=== PATIENT | male | born 1970 | race Caucasian/White ===

== ENCOUNTER 2017-01-03 22:44 | Emergency (ER) | payer MEDICAID, OTHER ==
[~2017-01-03] VITALS: Ht 177.8 cm; Wt 77.5 kg
[2017-01-03 22:51] VITALS: Ht 177.8 cm; Wt 77.5 kg
[2017-01-03] MEDS ORDERED: ONDANSETRON 4 MG INJ IV STA (23:41)
[2017-01-03] MEDS ORDERED: SOD CHLORIDE 0.9% 1,000 ML IV STA (23:41)
[2017-01-04] MEDS ORDERED: SOD CHLORIDE 0.9% 1,000 ML IV ONE
--- NOTE | 2017-01-04 00:29 | ERD ---
ER Documentation Chief Complaint Date/Time DATE: 01/04/17 TIME: 00:28 Chief Complaint hyperglycemia nw/ symptoms. dizziness [id number] [id number] HPI This is 46-year-old male comes emergency room with high sugars at home as well as urinary frequency and feeling lightheaded. He has had no nausea vomiting no fevers or chills. He is taking his metformin and glipizide 5 mg normally. Has no chest pain or shortness of breath per ROS All systems reviewed and are negative except as per history of present illness. Medications Home Meds Active Scripts Ondansetron Hcl* (Zofran*) 4 Mg Tablet, 4 MG PO Q6H for NAUSEA AND/OR VOMITING, #30 TAB Prov:TAMMY SHARMA DO 01/04/17 Reported Medications Ibuprofen* (Ibuprofen*) 100 Mg Tab.chew, 200 MG PO Q6, TAB.CHEW 01/04/17 Ascorbic Acid* (Ascorbic Acid*) 500 Mg/5 Ml Syrup, 500 MG PO DAILY, #150 ML 01/04/17 Sitagliptin* (Januvia*) 100 Mg Tablet, 100 MG PO DAILY, #30 TAB 01/04/17 Atorvastatin* (Atorvastatin*) 40 Mg Tablet, 40 MG PO QHS, #30 TAB 01/04/17 Glipizide* (Glipizide*) 5 Mg Tablet, 5 MG PO BID, TAB 01/04/17 Metformin* (Glucophage*) 1,000 Mg Tablet, 1000 MG PO BID, #60 TAB 01/04/17 Gabapentin* (Gabapentin*) 300 Mg Capsule, 300 MG PO BID, #60 CAP 01/04/17 Allergies Allergies: Coded Allergies: No Known Allergy (Unverified , 01/03/17) PMhx/Soc History of Surgery: No Anesthesia Reaction: No Hx Neurological Disorder: No Hx Respiratory Disorders: No Hx Cardiac Disorders: No Hx Psychiatric Problems: No Hx Miscellaneous Medical Probl: No Hx Substance Use: No Hx Tobacco Use: Yes Physical Exam Vitals Vital Signs Date Time Temp Pulse Resp B/P Pulse Ox O2 Delivery O2 Flow Rate FiO2 01/04/17 01:42 98.0 77 18 114/69 97 Room Air 01/03/17 22:51 98.3 91 20 144/101 100 Physical Exam Const: [] Mild distress, appears slightly uncomfortable Head: Atraumatic Eyes: Normal Conjunctiva ENT: Normal External Ears, Nose and Mouth. Neck: Full range of motion..~ No meningismus. Resp: Clear to auscultation bilaterally Cardio: Regular rate and rhythm, no murmurs Abd: Soft, non tender, non distended. Normal bowel sounds Skin: No petechiae or rashes Back: No midline or flank tenderness Ext: No cyanosis, or edema Neur: Awake and alert and oriented 3, no focal deficits Psych: Normal Mood and Affect Result Diagram: 01/04/17 0020 01/04/17 0020 Results 24 hrs Laboratory Tests Test 01/03/17 22:49 01/04/17 00:20 01/04/17 01:51 01/04/17 03:28 Bedside Glucose 248mg/dL 187mg/dL 186mg/dL White Blood Count 7.110^3/ul Red Blood Count 4.5110^6/ul Hemoglobin 14.5g/dl Hematocrit 41.5% Mean Corpuscular Volume 92.0fl Mean Corpuscular Hemoglobin 32.2pg Mean Corpuscular Hemoglobin Concent 34.9g/dl Red Cell Distribution Width 11.3% Platelet Count 93095^3/UL Mean Platelet Volume 10.1fl Neutrophils % 64.6% Lymphocytes % 21.5% Monocytes % 5.6% Eosinophils % 7.3% Basophils % 0.7% Nucleated Red Blood Cells % 0.0/100WBC Neutrophils # 4.610^3/ul Lymphocytes # 1.510^3/ul Monocytes # 0.410^3/ul Eosinophils # 0.510^3/ul Basophils # 0.110^3/ul Nucleated Red Blood Cells # 0.010^3/ul Urine Color YELLOW Urine Clarity CLEAR Urine pH 7.0 Urine Specific Dixon 1.032 Urine Ketones TRACEmg/dL Urine Nitrite NEGATIVEmg/dL Urine Bilirubin NEGATIVEmg/dL Urine Urobilinogen NEGATIVEmg/dL Urine Leukocyte Esterase NEGATIVELeu/ul Urine Microscopic RBC 0/HPF Urine Microscopic WBC 1/HPF Urine Hemoglobin NEGATIVEmg/dL Urine Glucose 3+mg/dL Urine Total Protein NEGATIVEmg/dl Sodium Level 138mmol/L Potassium Level 4.3mmol/L Chloride Level 100mmol/L Carbon Dioxide Level 25mmol/L Anion Gap 17 Blood Urea Nitrogen 11mg/dl Creatinine 0.56mg/dl Glucose Level 236mg/dl Lactic Acid Level 2.6mmol/L Calcium Level 9.6mg/dl Total Bilirubin 0.8mg/dl Direct Bilirubin 0.00mg/dl Indirect Bilirubin 0.8mg/dl Aspartate Amino Transf (AST/SGOT) 29IU/L Alanine Aminotransferase (ALT/SGPT) 33IU/L Alkaline Phosphatase 85IU/L Total Protein 7.8g/dl Albumin 5.0g/dl Globulin 2.80g/dl Albumin/Globulin Ratio 1.78 Lipase 97U/L Current Medications Medications (Trade) Dose Ordered Sig/Ok Route PRN Reason Start Time Stop Time Status Last Admin Dose Admin Sodium Chloride (NS) 1,000 ml @ 1,000 mls/hr Q1H STAT IV 01/03/17 23:41 01/04/17 00:40 DC 01/04/17 00:26 Ondansetron HCl 4 mg 4 mg ONCE STAT IV 01/03/17 23:41 01/03/17 23:43 DC 01/04/17 00:26 Sodium Chloride (NS) 1,000 ml @ 1,000 mls/hr Q1H ONCE IV 01/04/17 00:00 01/04/17 00:59 DC 01/04/17 00:27 Metoclopramide HCl (Reglan) 10 mg ONCE ONCE IV 01/04/17 03:30 01/04/17 03:31 DC 01/04/17 03:22 Procedures/MDM Hyperglycemia with dehydration likely secondary to urinary frequency. No signs of cardiac ischemia on EKG. Mild lactic acidosis secondary to dehydration. No signs of infectious process such as urinary tract infection. Patient was hydrated a liter of normal saline begin to feel better. Spoke to him and the importance of hydration and drinking adequate water. I am going to discharge him his Zofran is in case he develops nauseous that he can hydrate properly. Also instructed him to take 3 times a day diary of his blood sugars to present to his physician for possible adjustment of his medications. EKG interpretation: Normal sinus rhythm rate of 71, normal axis, no ST or T- wave changes concerning for acute ischemia, nonspecific ST-T wave changes. QT of 473. Departure Diagnosis: Primary Impression: Diabetes mellitus with hyperglycemia Additional Impressions: Dehydration Lactic acidosis Condition: Stable ZACHARYTAMMYJOAQUÍN MCDONALD Jan 04, 2017 00:29
[2017-01-04 00:36] LABS: ADD SCAN DIFF NO
[2017-01-04 00:55] LABS: ALBUMIN/GLOBULIN RATIO 1.78; BILIRUBIN,INDIRECT 0.8 mg/dl (0-1.1); BILIRUBIN,TOTAL 0.8 mg/dl (0.2-1.3); CALCIUM 9.6 mg/dl (8.4-10.2); CREATININE 0.56 mg/dl (0.61-1.24); POTASSIUM 4.3 mmol/L (3.5-5.1); TOTAL PROTEIN 7.8 g/dl (6.1-8.1)
[2017-01-04 00:58] LABS: BASOPHIL # 0.1 10^3/ul (0.0-0.1); BASOPHILS % 0.7 % (0.0-2.0); EOSINOPHILS # 0.5 10^3/ul (0.0-0.5); EOSINOPHILS % 7.3 % (0.0-7.0); HEMATOCRIT 41.5 % (42.0-52.0); HEMOGLOBIN 14.5 g/dl (14.0-18.0); LYMPHOCYTES # 1.5 10^3/ul (0.8-2.9); LYMPHOCYTES % 21.5 % (15.0-51.0); MEAN CORPUSCULAR HEMOGLOBIN 32.2 pg (29.0-33.0); MEAN CORPUSCULAR HGB CONC 34.9 g/dl (32.0-37.0); MEAN PLATELET VOLUME 10.1 fl (7.4-10.4); MONOCYTE # 0.4 10^3/ul (0.3-0.9); MONOCYTES % 5.6 % (0.0-11.0); NEUTROPHIL # 4.6 10^3/ul (1.6-7.5); NEUTROPHILS % 64.6 % (39.0-77.0); PLATELET COUNT 168 10^3/UL (140-415); RED BLOOD COUNT 4.51 10^6/ul (4.70-6.10); RED CELL DISTRIBUTION WIDTH 11.3 % (11.5-14.5); WHITE BLOOD COUNT 7.1 10^3/ul (4.8-10.8)
[2017-01-04 01:04] LABS: ADD UMIC NO; UR ASCORBIC ACID 20 mg/dL (NEGATIVE); UR BILIRUBIN (Dip) NEGATIVE (NEGATIVE); UR BLOOD (Dip) NEGATIVE (NEGATIVE); UR CLARITY CLEAR (CLEAR); UR COLOR YELLOW (YELLOW); UR GLUCOSE (Dip) 3+ mg/dL (NEGATIVE); UR KETONES (Dip) TRACE mg/dL (NEGATIVE); UR LEUKOCYTE ESTERASE (Dip) NEGATIVE Leu/ul (NEGATIVE); UR NITRITE (Dip) NEGATIVE (NEGATIVE); UR RBC 0 /HPF (0-5); UR SPECIFIC GRAVITY (Dip) 1.032 (1.003-1.030); UR TOTAL PROTEIN (Dip) NEGATIVE (NEGATIVE); UR UROBILINOGEN (Dip) NEGATIVE (NEGATIVE)
[2017-01-04] MEDS ORDERED: IBUP100T46 PO (01:20)
[2017-01-04] MEDS ORDERED: ATOR40TA68 PO (01:20)
[2017-01-04] MEDS ORDERED: SITA100T8 PO (01:20)
[2017-01-04] MEDS ORDERED: MTF1000T PO (01:20)
[2017-01-04] MEDS ORDERED: GABA300C16 PO (01:20)
[2017-01-04] MEDS ORDERED: ASCO500S2 PO (01:20)
[2017-01-04] MEDS ORDERED: GLIP5TAB13 PO (01:20)
[2017-01-04 01:42] VITALS: TEMP 98
[2017-01-04] MEDS ORDERED: METOCLOPRAMIDE 10 MG INJ IV ONE (03:30)
[2017-01-04] MEDS ORDERED: ONDA4TAB8 PO (04:01)
[2017-01-04 04:10] VITALS: BP 121/76; PULSE 73; RESP 18
== END 2017-01-04 04:10 | disposition home or self-care (01) ==
LOC: E/R 22:44
DX: E11.65 Type 2 diabetes mellitus with hyperglycemia (principal); E86.0 Dehydration; E87.2 Acidosis; Z87.891 Personal history of nicotine dependence; Z79.84 Long term (current) use of oral hypoglycemic drugs
CPT/HCPCS: 36415; 80053; 81003; 82962; 83605; 83690; 85025; 93005; 96374; 96375; J2405; J2765; J7030; Z7502